=== PATIENT | female | born 1930 | race Caucasian/White ===

== ENCOUNTER 2020-03-07 11:45 | Outpatient (CLI) | payer MEDICARE ==
[2020-03-07 16:59] LABS: ALBUMIN 3.2 g/dL (3.2-5.5); ALBUMIN/GLOBULIN RATIO 0.9 (1.0-2.2); ALKALINE PHOSPHATASE 86 IU/L (42-121); ALT ALANINE AMINOTRANSFERASE < 10 IU/L (10-60); AST ASPARTATE AMINOTRANSFERASE 10 IU/L (10-42); BASOPHILS % (AUTO) 0.5 %; BILIRUBIN,TOTAL 0.3 mg/dL (0.2-1.0); BUN - BLOOD UREA NITROGEN 29 mg/dL (6-20); CALCIUM 9.5 mg/dL (8.5-10.3); CARBON DIOXIDE - CO2 25 mmol/L (21-32); CHLORIDE 105 mmol/L (101-111); CREATININE 0.7 mg/dL (0.4-1.0); EOSINOPHILS # (AUTO) 0.4 10^3/uL (0.0-0.7); GLUCOSE 107 mg/dL (70-100); HGB - HEMOGLOBIN 9.4 g/dL (12.0-16.0); LYMPHOCYTES # (AUTO) 1.9 10^3/uL (1.5-3.5); LYMPHOCYTES % (AUTO) 21.9 %; MEAN CORPUSCULAR HEMOGLOBIN 26.4 pg (27.0-31.0); MEAN CORPUSCULAR HGB CONC 30.5 g/dL (32.0-36.0); MEAN CORPUSCULAR VOLUME 86.5 fL (81.0-99.0); MEAN PLATELET VOLUME 10.6 fL (7.9-10.8); MONOCYTES # (AUTO) 0.5 10^3/uL (0.0-1.0); MONOCYTES % (AUTO) 5.1 %; PLT - PLATELET COUNT 319 10^3/uL (130-450); RED BLOOD COUNT 3.56 10^6/uL (4.20-5.40); RED CELL DISTRIBUTION WIDTH 15.3 % (12.0-15.0); SODIUM 139 mmol/L (135-145); TOTAL PROTEIN 6.6 g/dL (6.7-8.2); WHITE BLOOD COUNT 8.8 x10^3/uL (4.8-10.8)
== END 2020-03-07 11:46 | disposition home or self-care (01) ==
LOC: LAB.S 11:45
PROVIDERS: ATTEND Internal Medicine
DX: R42 Dizziness and giddiness (principal)
CPT/HCPCS: 36415; 80053; 85025

== ENCOUNTER 2020-04-11 13:17 | Outpatient (CLI) | payer MEDICARE ==
[2020-04-11 20:42] LABS: BASOPHILS # (AUTO) 0.1 10^3/uL (0.0-0.1); BASOPHILS % (AUTO) 0.5 %; EOSINOPHILS # (AUTO) 0.4 10^3/uL (0.0-0.7); EOSINOPHILS % (AUTO) 4.1 %; HGB - HEMOGLOBIN 8.8 g/dL (12.0-16.0); LYMPHOCYTES % (AUTO) 20.2 %; MEAN CORPUSCULAR HEMOGLOBIN 25.6 pg (27.0-31.0); MEAN CORPUSCULAR HGB CONC 29.7 g/dL (32.0-36.0); MEAN PLATELET VOLUME 10.6 fL (7.9-10.8); MONOCYTES # (AUTO) 0.5 10^3/uL (0.0-1.0); MONOCYTES % (AUTO) 5.2 %; NEUTROPHILS # (AUTO) 6.8 10^3/uL (1.5-6.6); NEUTROPHILS % (AUTO) 69.7 %; PLT - PLATELET COUNT 350 10^3/uL (130-450); RED BLOOD COUNT 3.44 10^6/uL (4.20-5.40); RED CELL DISTRIBUTION WIDTH 15.8 % (12.0-15.0); WHITE BLOOD COUNT 9.8 x10^3/uL (4.8-10.8)
[2020-04-11 20:51] LABS: ALBUMIN 3.1 g/dL (3.2-5.5); ALBUMIN/GLOBULIN RATIO 0.9 (1.0-2.2); BILIRUBIN,TOTAL 0.3 mg/dL (0.2-1.0); CALCIUM 9.2 mg/dL (8.5-10.3); CREATININE 0.6 mg/dL (0.4-1.0); TOTAL PROTEIN 6.5 g/dL (6.7-8.2)
== END 2020-04-11 13:18 | disposition home or self-care (01) ==
LOC: LAB.S 13:17
PROVIDERS: ATTEND Internal Medicine
DX: R42 Dizziness and giddiness (principal); D64.9 Anemia, unspecified
CPT/HCPCS: 36415; 80053; 82728; 85025

== ENCOUNTER 2020-05-25 14:05 | Outpatient (CLI) | payer MEDICARE ==
[2020-05-25 19:55] LABS: BASOPHILS % (AUTO) 0.3 %; EOSINOPHILS # (AUTO) 0.3 10^3/uL (0.0-0.7); EOSINOPHILS % (AUTO) 3.7 %; HGB - HEMOGLOBIN 8.5 g/dL (12.0-16.0); LYMPHOCYTES # (AUTO) 1.8 10^3/uL (1.5-3.5); MEAN CORPUSCULAR HEMOGLOBIN 25.3 pg (27.0-31.0); MEAN CORPUSCULAR VOLUME 84.2 fL (81.0-99.0); MEAN PLATELET VOLUME 10.5 fL (7.9-10.8); MONOCYTES # (AUTO) 0.5 10^3/uL (0.0-1.0); NEUTROPHILS # (AUTO) 6.4 10^3/uL (1.5-6.6); NEUTROPHILS % (AUTO) 70.7 %; PLT - PLATELET COUNT 348 10^3/uL (130-450); RED BLOOD COUNT 3.36 10^6/uL (4.20-5.40); RED CELL DISTRIBUTION WIDTH 16.9 % (12.0-15.0); WHITE BLOOD COUNT 9.1 x10^3/uL (4.8-10.8)
== END 2020-05-25 14:06 | disposition home or self-care (01) ==
LOC: LAB.S 14:05
PROVIDERS: ATTEND Internal Medicine
DX: R42 Dizziness and giddiness (principal); D64.9 Anemia, unspecified
CPT/HCPCS: 36415; 85025

== ENCOUNTER 2020-07-07 09:44 | Outpatient (CLI) | payer MEDICARE ==
[2020-07-07 15:04] LABS: BASOPHILS # (AUTO) 0.1 10^3/uL (0.0-0.1); BASOPHILS % (AUTO) 0.5 %; EOSINOPHILS # (AUTO) 0.5 10^3/uL (0.0-0.7); EOSINOPHILS % (AUTO) 4.6 %; HCT - HEMATOCRIT 30.4 % (37.0-47.0); LYMPHOCYTES # (AUTO) 1.9 10^3/uL (1.5-3.5); LYMPHOCYTES % (AUTO) 16.7 %; MEAN CORPUSCULAR HEMOGLOBIN 24.1 pg (27.0-31.0); MEAN CORPUSCULAR HGB CONC 29.6 g/dL (32.0-36.0); MEAN CORPUSCULAR VOLUME 81.3 fL (81.0-99.0); MEAN PLATELET VOLUME 10.4 fL (7.9-10.8); MONOCYTES # (AUTO) 0.7 10^3/uL (0.0-1.0); MONOCYTES % (AUTO) 5.8 %; NEUTROPHILS # (AUTO) 8.2 10^3/uL (1.5-6.6); PLT - PLATELET COUNT 409 10^3/uL (130-450); RED BLOOD COUNT 3.74 10^6/uL (4.20-5.40); RED CELL DISTRIBUTION WIDTH 17.5 % (12.0-15.0); WHITE BLOOD COUNT 11.4 x10^3/uL (4.8-10.8)
== END 2020-07-07 09:45 | disposition home or self-care (01) ==
LOC: LAB.S 09:44
PROVIDERS: ATTEND Internal Medicine
DX: D64.9 Anemia, unspecified (principal)
CPT/HCPCS: 36415; 82728; 85025

== ENCOUNTER 2020-07-18 08:00 | Outpatient (CLI) | payer MEDICARE ==
--- NOTE | 2020-07-18 12:44 | XRAY Report ---
PROCEDURE: Sacrum/Coccyx INDICATIONS: PAIN IN THE COCCYX TECHNIQUE: 3 views of the sacrum and coccyx acquired. COMPARISON: None FINDINGS: Bones: No fractures or dislocations. No suspicious bony lesions. Partially visualized right hip art hroplasty. Severe left hip osteoarthritis. 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 Soft tissues: Visualized bowel gas pattern is normal. 4.1 x 2.9 x 4.5 cm coarse calcification projec ts over the lower left pelvis likely related to uterine fibroid. IMPRESSION: No fracture. No acute osseous lesion. If there persistent symptoms or continued clinical concern for pathology, then repeat plain film radiographs (7-10 days) or advanced imaging (CT, MR, bone scan) candy uld be considered for further evaluation. Reviewed by: Mckayla King MD, PhD on 07/18/2020 12:43 PM PDT Approved by: Mckayla King MD, PhD on 07/18/2020 12:43 PM PDT Station ID: [id number]
== END 2020-07-18 23:59 | disposition home or self-care (01) ==
LOC: DI.S 08:00
PROVIDERS: ATTEND Physician Assistant Medical
DX: M53.3 Sacrococcygeal disorders, not elsewhere classified (principal); R35.1 Nocturia
CPT/HCPCS: 87086; 87181

== ENCOUNTER 2020-10-21 08:00 | Outpatient (CLI) | payer MEDICARE ==
--- NOTE | 2020-10-21 16:49 | XRAY Report ---
PROCEDURE: Lumbar Spine 2 View INDICATIONS: Low back pain status post fall TECHNIQUE: 2 views of the lumbar spine were acquired. COMPARISON: None. FINDINGS: There is a moderate levoscoliotic curvature in the lumbar spine centered at L2. There is a rotational component to the scoliosis. There is also anterolisthesis of L4 and L5 measuring approximately 1 cm in possible retrolisthesis of L2 on L3 measuring 6 mm. No obvious fracture. Vertebral body heights ap pear to be maintained. No suspicious lytic or blastic osseous lesion. Extensive degenerative changes. Aortic atherosclerosis. Advanced degenerative changes of the left hip. IMPRESSION: No obvious acute finding. There are advanced degenerative changes with suspected degenerative fusion/ankylosis. If there is foc al point tenderness or other clinical factors which create continued concern for fracture in the sett ing of fall, a CT scan would be recommended for further evaluation. Reviewed by: Hector Vargas MD on 10/21/2020 4:47 PM PDT Approved by: Hector Vargas MD on 10/21/2020 4:47 PM PDT Station ID: [id number]
== END 2020-10-21 23:59 | disposition home or self-care (01) ==
LOC: DI.S 08:00
PROVIDERS: ATTEND Physician Assistant
DX: M54.5 Low back pain (principal)

== ENCOUNTER 2020-10-21 14:32 | Outpatient (CLI) | payer MEDICARE ==
[2020-10-21 19:46] LABS: BASOPHILS # (AUTO) 0.1 10^3/uL (0.0-0.1); BASOPHILS % (AUTO) 0.3 %; EOSINOPHILS # (AUTO) 0.5 10^3/uL (0.0-0.7); EOSINOPHILS % (AUTO) 3.3 %; HCT - HEMATOCRIT 24.9 % (37.0-47.0); HGB - HEMOGLOBIN 7.4 g/dL (12.0-16.0); LYMPHOCYTES # (AUTO) 2.4 10^3/uL (1.5-3.5); LYMPHOCYTES % (AUTO) 15.1 %; MEAN CORPUSCULAR HEMOGLOBIN 23.4 pg (27.0-31.0); MEAN CORPUSCULAR HGB CONC 29.7 g/dL (32.0-36.0); MEAN CORPUSCULAR VOLUME 78.8 fL (81.0-99.0); MEAN PLATELET VOLUME 9.5 fL (7.9-10.8); MONOCYTES # (AUTO) 0.7 10^3/uL (0.0-1.0); MONOCYTES % (AUTO) 4.4 %; NEUTROPHILS # (AUTO) 12.3 10^3/uL (1.5-6.6); NEUTROPHILS % (AUTO) 76.3 %; PLT - PLATELET COUNT 486 10^3/uL (130-450); RED BLOOD COUNT 3.16 10^6/uL (4.20-5.40); RED CELL DISTRIBUTION WIDTH 19.6 % (12.0-15.0); WHITE BLOOD COUNT 16.1 x10^3/uL (4.8-10.8)
== END 2020-10-21 14:33 | disposition home or self-care (01) ==
LOC: LAB.S 14:32
PROVIDERS: ATTEND Internal Medicine
DX: D64.9 Anemia, unspecified (principal)
CPT/HCPCS: 36415; 85025

== ENCOUNTER 2020-11-04 14:48 | Emergency (ER) | payer MEDICARE ==
--- NOTE | 2020-11-04 15:05 | ED Physician Documentation ---
History of Present Illness - Stated complaint Stated Complaint: low on blood- FROM [facility] [place] - History obtained from History obtained from: Patient - Additonal information Additional information: 89-year-old woman has had a progressive decline over the last few months. She lives with her daughter and does not have a history of dementia. Over the last few months her become progressively weak and dizzy with dark and tarry stools. No complaints of abdominal pain or vomiting. Her physician diagnosed her with anemia and she went to the [facility] [place] clinic today for an iron infusion. While there was noted to be orthostatic and referred to the ED for further evaluation and treatment. Review of recent labs show a progressive decrease in her hemoglobin in general from 9.4 late last year to 7.0 today. Does not sound like she has had any recent upper or lower endoscopies. Review of Systems Ten Systems: 10 systems reviewed and negative Constitutional: reports: Reviewed and negative Ears: reports: Reviewed and negative Nose: reports: Reviewed and negative Throat: reports: Reviewed and negative PD PAST MEDICAL HISTORY - Present Medications Home Medications: Ambulatory Orders Medication Instructions Recorded Confirmed Aspirin [Lisbet] 2 tab PO TID 11/04/20 11/04/20 Cefdinir 300 mg PO BID #10 cap 11/04/20 Iron,Carbonyl [Carbonyl Iron] 0 mg PO DAILY 11/04/20 11/04/20 Nicotine 14 mg Patch [Nicoderm] 1 each TOP Q24H #90 patch 11/04/20 - Allergies Allergies/Adverse Reactions: Allergies Allergy/AdvReac Type Severity Reaction Status Date / Time No Known Drug Allergies Allergy Verified 11/04/20 15:08 PD ED PE NORMAL - Vitals Vital signs reviewed: Yes - General General: No acute distress, Well developed/nourished, Other (Much of the history is from the daughter as the patient seems to have some poor short-term memory issues.) - HEENT HEENT: PERRL, EOMI - Neck Neck: Supple, no meningeal sign, No bony TTP - Cardiac Cardiac: RRR, No murmur - Respiratory Respiratory: No respiratory distress, Clear bilaterally - Abdomen Abdomen: Non tender - Rectal Rectal: Other (Rectal exam done with nurse Christie alcantara, quite dark stool, no tenderness.) - Extremities Extremities: No edema, No calf tenderness / cord - Neuro Eye Opening: Spontaneous Motor: Obeys Commands Verbal: Confused GCS Score: 14 Results - Vitals Vitals: Vital Signs - 24 hr 11/04/20 11/04/20 11/04/20 15:02 15:58 17:05 Temperature 36.4 C L 36.3 C L 36.4 C L Heart Rate 55 L 60 62 Respiratory 15 22 16 Rate Blood Pressure 115/69 103/56 L 102/48 L O2 Saturation 100 100 100 11/04/20 11/04/20 11/04/20 17:15 17:20 17:30 Temperature 36.4 C L 36.4 C L 36.4 C L Heart Rate 60 66 66 Respiratory 18 20 20 Rate Blood Pressure 104/50 L 99/42 L 104/43 L O2 Saturation 11/04/20 11/04/20 11/04/20 19:00 20:20 20:35 Temperature 36.6 C 36.7 C 36.7 C Heart Rate 61 63 64 Respiratory 15 18 16 Rate Blood Pressure 120/60 117/46 L 133/45 H O2 Saturation 99 98 Oxygen O2 Source Room air - Labs Labs: Microbiology 11/04/20 16:30 Occult Blood - Final Stool Laboratory Tests 11/04/20 11/04/20 11/04/20 15:38 15:38 15:38 Sodium 139 Potassium 3.5 Chloride 107 Carbon Dioxide 18 L Anion Gap 14.0 H BUN 36 H Creatinine 0.8 Estimated GFR (MDRD) 68 L Glucose 108 H Calcium 9.1 Blood Type O POSITIVE Blood Type Recheck O POSITIVE Antibody Screen NEGATIVE Crossmatch IS Only See Detail PD MEDICAL DECISION MAKING - ED course ED course: 89-year-old woman has been declining over the last few months with progressive anemia. Iron deficiency. Was weak in the [facility] clinic today for an iron infusion and referred here. She was given 1 unit of PRBCs with improvement. They w anted to start her on antibiotics for ?UTI here. She was not able to produce adequate ua sample. Guaiac negative. Departure - Departure Disposition: 01 Home, Self Care Clinical Impression: Iron deficiency, Memory difficulties Anemia Qualifiers: Anemia type: iron deficiency Condition: Good Record reviewed to determine appropriate education?: Yes Instructions: ED Anemia Iron Deficiency, ED Dementia Caregiver Support Follow-Up: Milad Hagan MD [Primary Care Provider] - Prescriptions: Cefdinir 300 mg PO BID #10 cap Nicotine 14 mg Patch [Nicoderm] 1 each TOP Q24H #90 patch Comments: She received 1 unit of blood today. I am prescribing antibiotics for potential urine infection as well as the nicotine patches. Follow the instructions with social service coordinator regarding potential care options. Follow-up with Dr. Hagan, next available appointment. Discharge Date/Time: 11/04/20 20:43
[2020-11-04 15:56] LABS: CALCIUM 9.1 mg/dL (8.5-10.3); CREATININE 0.8 mg/dL (0.4-1.0); POTASSIUM 3.5 mmol/L (3.5-5.0)
[2020-11-04] MEDS ORDERED: PANTOPRAZOLE 40 MG VIAL IVP STA (16:33)
[2020-11-04 20:46] VITALS: BP 133/45
--- NOTE | 2020-11-05 14:01 | ED Physician Documentation ---
ED Addendum - Addendum Addendum: 11/05/20 13:57 [facility] called because the patient has a script for bactrim she hasn't filled yet from another doctor, as well as cefdinir. I advised them to tell the patient just to fill the bactrim since it should cover uti. we will call if sensitivities need adjusting.
== END 2020-11-04 20:43 | disposition home or self-care (01) ==
LOC: ED 14:48
DX: D50.9 Iron deficiency anemia, unspecified (principal); F03.90 Unspecified dementia, unspecified severity, without behavioral disturbance, psychotic disturbance, mood disturbance, and anxiety
CPT/HCPCS: 36415; 36430; 80048; 82270; 86850; 86900; 86901; 86920; 96374; 99284